=== PATIENT | male | born 1960 | race Caucasian/White ===

== ENCOUNTER 2022-05-22 06:35 | Day surgery (SDC) | payer MEDICARE ==
[2022-05-22] VITALS (9 sets, daily range): BP systolic 109–118; BP diastolic 70–78
[~2022-05-22] VITALS: Ht 175.3 cm; Wt 94.9 kg
[2022-05-22] MEDS ORDERED: diphenhydrAMINE 25mg capsule PO PRN (06:55)
[2022-05-22] MEDS: normal saline 1,000 ML IV SCH ×2 (07:15→11:23)
[2022-05-22] MEDS ORDERED: SUMA100T16 PO (07:24)
[2022-05-22] MEDS ORDERED: ALBU17AE26 (07:24)
[2022-05-22] MEDS ORDERED: LISI1TAB53 PO (07:24)
[2022-05-22] MEDS ORDERED: CARV6.253 PO (07:24)
[2022-05-22] MEDS ORDERED: [UNRECOGNIZED DRUG - CODE] PO (07:24)
[2022-05-22] MEDS ORDERED: ROSU40TA22 PO (07:24)
[2022-05-22] MEDS ORDERED: PANT40TA54 PO (07:24)
[2022-05-22] MEDS ORDERED: CLOP75TA34 PO (07:24)
[2022-05-22] MEDS ORDERED: QUET300T20 PO (07:24)
[2022-05-22] MEDS ORDERED: ALIR150P6 SQ (07:24)
[2022-05-22 07:37] LABS: BASOPHILS # (AUTO) 0.1 X10'3 (0-0.2); EOSINOPHILS # (AUTO) 0.2 X10'3 (0-0.9); EOSINOPHILS % (AUTO) 2.2 % (0-6); HEMOGLOBIN 16.2 g/dl (14.0-17.9); LYMPHOCYTES # (AUTO) 2.3 X10'3 (1.1-4.8); LYMPHOCYTES % (AUTO) 28.6 % (21-51); MEAN CORPUSCULAR HEMOGLOBIN 30.2 PG (27.0-31.0); MEAN CORPUSCULAR VOLUME 91.4 FL (78-98); MEAN PLATELET VOLUME 7.5 FL (7.4-10.4); MONOCYTES # (AUTO) 0.6 X10'3 (0-0.9); MONOCYTES % (AUTO) 7.7 % (2-12); NEUTROPHILS # (AUTO) 4.9 X10'3 (1.8-7.7); NEUTROPHILS % (AUTO) 60.5 % (42-75); PLATELET COUNT 268 X10'3 (140-440); RED BLOOD COUNT 5.36 X10'6 (4.70-6.10); RED CELL DISTRIBUTION WIDTH 14.4 % (11.5-14.5); WHITE BLOOD COUNT 8.1 X10'3 (4.5-11.0)
[2022-05-22 08:01] LABS: ALBUMIN 3.7 G/DL (3.4-5.0); ANION GAP 9 (8-16); BLOOD UREA NITROGEN 29 MG/DL (7-18); BUN/CREATININE RATIO 22.7 (5.4-32.0); CALCIUM 9.4 MG/DL (8.5-10.1); CHLORIDE 101 MMOL/L (99-107); CREATININE 1.28 MG/DL (0.60-1.10); GLUCOSE 95 MG/DL (70-104); MAGNESIUM 1.9 MG/DL (1.5-2.4); SODIUM 136 MMOL/L (135-145); TOTAL CARBON DIOXIDE 25.6 MMOL/L (24-32); eGFR 57 ML/MIN
[2022-05-22] MEDS ORDERED: midazolam 1 mg/ML 2ml injection ONE ×3 (08:41→10:24)
[2022-05-22] MEDS ORDERED: heparin 1,000unit/ml 10ml vial 10 ML ONE (08:42)
[2022-05-22] MEDS ORDERED: iohexol 350MG/ML 100ml bottle IV ONE ×3 (08:42→10:20)
[2022-05-22] MEDS ORDERED: LIDOcaine 1% 30ml preserv. free vial ONE (08:42)
[2022-05-22] MEDS ORDERED: fentaNYL/PF 50MCG/1 ML 2ML syringe ONE ×2 (08:42→10:25)
[2022-05-22] MEDS ORDERED: nitroGLYCERIN-Tridil 50MG/D5W 250 ML IV ONE (10:16)
[2022-05-22] MEDS ORDERED: clopidogrel 300mg tablet ONE (10:43)
[2022-05-22] MEDS ORDERED: HYDROcodone/acetaminophen 5mg/325mg tablet PO PRN ×2 (11:25→11:55)
[2022-05-22] MEDS ORDERED: normal saline 1000ml 1,000 ML IV SCH ×2 (11:25→11:55)
[2022-05-22] MEDS ORDERED: proCHLORperazine 10 MG/2 ml inj IV PRN ×2 (11:25→11:55)
[2022-05-22] MEDS ORDERED: HYDROcodone/acetaminophen 10/325mg tab PO PRN ×2 (11:25→11:55)
[2022-05-22] MEDS ORDERED: ondansetron/PF 4mg/2ml inj IV PRN ×2 (11:25→11:55)
[2022-05-22] MEDS ORDERED: aspirin 325mg tablet PO SCH (11:56)
== END 2022-05-22 14:20 | disposition home or self-care (01) ==
LOC: SSTAY O 06:35
PROVIDERS: ATTEND Internal Medicine Cardiovascular Disease
DX: I25.10 Atherosclerotic heart disease of native coronary artery without angina pectoris (principal); I25.82 Chronic total occlusion of coronary artery; I25.2 Old myocardial infarction; E78.5 Hyperlipidemia, unspecified; I10 Essential (primary) hypertension; J44.9 Chronic obstructive pulmonary disease, unspecified; I25.5 Ischemic cardiomyopathy; Z79.899 Other long term (current) drug therapy; Z98.890 Other specified postprocedural states
CPT/HCPCS: 36415; 80048; 83735; 85025; 85610; 92978; 93005; 93459; 99152; 99153; C1725; C1751; C1753; C1760; C1769; C1874; C1894; C9600; J1644; J2250; J3010; J3490; J7030; Q9967; A4620; A6258